=== PATIENT | male | born 1980 | race Caucasian/White ===

== ENCOUNTER 2017-08-12 22:20 | Emergency (ER) | payer BC ==
[2017-08-13 00:16] LABS: Amphetamine Not Detected (NotDetected); Methadone Not Detected (NotDetected); Methamphetamine Not Detected (NotDetected)
[2017-08-13 00:19] LABS: #Basophils 0.1 thou/uL (0.0-0.2); #Eosinphils 0.1 thou/uL (0.0-0.7); #Lymphocytes 2.7 thou/uL (1.20-3.40); #Monocytes 0.6 thou/uL (0.11-0.59); %Basophils 1.3 % (0.0-1.0); %Eosinophils 1.7 % (0.0-10.0); %Lymphocytes 35.4 % (21.0-51.0); %Monocytes 8.1 % (0.0-10.0); Mean Platelet Volume 7.9 fL (7.4-10.4); Red Blood Cell (RBC) Count 5.24 mill/uL (4.70-6.10); White Blood Cell (WBC) Count 7.5 thou/uL (4.8-10.8)
[2017-08-13 00:29] LABS: Bilirubin Negative (Negative); Blood, Urine Small (Negative); Glucose, Urine (Dipstick) Negative (Negative); Ketone, Urine Trace mg/dL (Negative); Nitrite Negative (Negative); Protein, Urine (Dipstick) Negative (Neg-Trace)
[2017-08-13 00:32] LABS: Bacteria/HPF None Seen HPF (None Seen); Hyaline Casts/LPF 0-3 HYALINE CAST LPF (0-3 Hyaline); RBC/HPF None Seen HPF (0-3); Squamous Epithelial None Seen HPF (0-3); WBC/HPF 0-3 HPF (0-3)
[2017-08-13 00:40] LABS: Acetaminophen Less than 6.0 mcg/mL (10.0-30.0); CK (CPK) 62 U/L (30-200); Salicylate Less than 8.0 mg/dL (15.0-30.0)
[2017-08-13 00:41] LABS: ALT (SGPT) 14 U/L (8-55); AST (SGOT) 19 U/L (5-34); Alkaline Phosphatase 54 U/L (40-150); Anion Gap 18 mmol/L (10-20); BUN (Urea Nitrogen) 15 mg/dL (8.9-20.6); Bilirubin, Total 0.4 mg/dL (0.2-1.2); Calc. Creatinine Clearance 0 mL/min (70-130); Calcium 8.9 mg/dL (7.8-10.44); Carbon Dioxide 23 mmol/L (22-29); Chloride 104 mmol/L (98-107); Estimated GFR-MDRD Greater than 90; Globulin 2.9 g/dL (2.4-3.5); Protein, Total 7.2 g/dL (6.0-8.3)
[2017-08-13] MEDS ORDERED: Lisinopril 10 MG TAB PO SCH (09:00)
[2017-08-13] MEDS ORDERED: CLOMIPRAMINE HCL 50 MG PO SCH ×2 (09:00→09:45)
[2017-08-13] MEDS ORDERED: Anastrozole 1 MG TAB PO SCH (09:00)
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
[2017-08-15] MEDS ORDERED: CLOMIPHENE CITRATE PO SCH (09:00)
[2017-08-15] MEDS ORDERED: Anastrozole 1 MG TAB PO SCH (09:00)
== END 2017-08-14 13:00 ==
LOC: ERS 22:20
DX: T14.91XA Suicide attempt, initial encounter (principal); F32.9 Major depressive disorder, single episode, unspecified; E66.9 Obesity, unspecified; Z79.899 Other long term (current) drug therapy
CPT/HCPCS: 36415; 80053; 80306; 80307; 81003; 81015; 82550; 84443; 85025

== ENCOUNTER 2017-09-12 16:27 | Outpatient (CLI) | payer BC ==
[2017-09-12 17:17] LABS: #Basophils 0.1 thou/uL (0.0-0.2); #Eosinphils 0.1 thou/uL (0.0-0.7); #Lymphocytes 2.6 thou/uL (1.20-3.40); #Monocytes 0.7 thou/uL (0.11-0.59); #Neutrophils 4.5 thou/uL (1.40-6.50); %Basophils 0.7 % (0.0-1.0); %Eosinophils 1.6 % (0.0-10.0); %Lymphocytes 32.5 % (21.0-51.0); %Monocytes 8.8 % (0.0-10.0); Hematocrit 46.7 % (42.0-52.0); Mean Platelet Volume 7.4 fL (7.4-10.4); Red Blood Cell (RBC) Count 5.02 mill/uL (4.70-6.10)
== END 2017-09-12 16:28 | disposition home or self-care (01) ==
LOC: LABBT 16:27
PROVIDERS: ATTEND Orthopaedic Surgery
DX: Z01.812 Encounter for preprocedural laboratory examination (principal); G56.20 Lesion of ulnar nerve, unspecified upper limb
CPT/HCPCS: 85025; 93005; 93010

== ENCOUNTER 2017-09-14 08:10 | Day surgery (SDC) | payer BC ==
[2017-09-12 16:42] VITALS: BMI 27.3
[2017-09-14] MEDS ORDERED: CEFAZOLIN/Water 2 GM/20 ML SYRINGE ONE (08:55)
[2017-09-14] MEDS ORDERED: Lidocaine 1% (PF) 30 ML VIAL ONE (10:17)
[2017-09-14] MEDS ORDERED: Fentanyl 100 MCG/2 ML VIAL ONE (10:18)
--- NOTE | 2017-09-16 00:19 | OP ---
DATE OF PROCEDURE: 09/14/2017 PREOPERATIVE DIAGNOSIS: Right cubital tunnel syndrome. POSTOPERATIVE DIAGNOSIS: Right cubital tunnel syndrome. PROCEDURE PERFORMED: 1. Right open ulnar nerve release with anterior transposition. 2. Placement of long arm splint, right upper extremity. SURGEON: Mj Lindo M.D. CHEMICAL EDUCATOR: None. BLOOD LOSS: Minimal. COMPLICATIONS: None. IMPLANTS: No implants. ANESTHETIC: Patient did have a general anesthetic. DISPOSITION: He did go to the recovery room in stable condition. INDICATIONS: A 36-year-old male who has had problems with numbness and tingling and weakness in his right arm. EMG/NCV showed him to have moderate to severe cubital tunnel syndrome. At this time, he opted for release. DESCRIPTION OF PROCEDURE: After all appropriate consent forms were explained and signed, he was take n back to the operating room and at this time was given a general anesthetic. Tourniquet was placed on his right arm and the arm was then prepped and draped in standard surgical fashion. Limb was exsa nguinated and tourniquet taken up to 250 mmHg. Using loupe magnification, a 10 blade was used to cut down through skin only. Bipolar cautery was then used to coagulate any brisk venous bleeding. Scis sor dissection was then carried down to the underlying ulnar nerve. This was released from proximal brachium all the way down to the first motor branch. Once this had been done and had been freed up c ircumferentially, a couple of interrupted Vicryl sutures were used to close the tissue over the cubit al tunnel so that the nerve would not fall back into the groove. At this time, the tourniquet was le t down and hemostasis was achieved. We then thoroughly irrigated and dried. We then used multiple V icryls as well as multiple Prolene sutures to close skin. Prior to placing our dressing, local was i nfiltrated around the wound for postoperative pain relief. At this time, a bulky sterile dressing wa s applied as well as a long arm splint to the right upper extremity. Patient was then awakened and h e was taken to recovery in stable condition. All counts were correct at the end of the case. He rec eived preoperative IV antibiotics.
== END 2017-09-14 13:11 | disposition home or self-care (01) ==
LOC: SDC 08:10
PROVIDERS: ATTEND Orthopaedic Surgery
PROC: 01N40ZZ Release Ulnar Nerve, Open Approach (ICD-10-PCS; principal; 2017-09-14)
DX: G56.21 Lesion of ulnar nerve, right upper limb (principal); M10.9 Gout, unspecified; I10 Essential (primary) hypertension; F17.220 Nicotine dependence, chewing tobacco, uncomplicated; Z79.899 Other long term (current) drug therapy; Z91.011 Allergy to milk products; Z98.84 Bariatric surgery status; Z98.818 Other dental procedure status; Z98.890 Other specified postprocedural states; Z85.828 Personal history of other malignant neoplasm of skin
CPT/HCPCS: J2001; J3010

== ENCOUNTER 2019-02-20 21:24 | Emergency (ER) | payer BC ==
[2019-02-20 21:57] LABS: #Eosinphils 0.1 thou/uL (0.0-0.7); #Lymphocytes 2.8 thou/uL (1.20-3.40); #Monocytes 0.5 thou/uL (0.11-0.59); #Neutrophils 4.1 thou/uL (1.40-6.50); %Basophils 0.6 % (0.0-1.0); %Eosinophils 1.7 % (0.0-10.0); %Lymphocytes 37.2 % (21.0-51.0); %Neutrophils 53.5 % (42.0-75.0); Hemoglobin 13.9 g/dL (14.0-18.0); Mean Corpuscular HGB CONC 33.8 g/dL (32.0-36.0); Mean Corpuscular Hemoglobin 31.6 pg (27.0-31.0); Mean Corpuscular Volume 93.3 fL (78.0-98.0); Mean Platelet Volume 7.7 fL (7.4-10.4); Platelet Count 296 thou/uL (130-400); RBC Distribution Width 10.8 % (11.5-14.5); Red Blood Cell (RBC) Count 4.39 mill/uL (4.70-6.10); White Blood Cell (WBC) Count 7.6 thou/uL (4.8-10.8)
[2019-02-20 22:19] LABS: ALT (SGPT) 19 U/L (8-55); AST (SGOT) 19 U/L (5-34); Acetaminophen Less than 6.0 mcg/mL (10.0-30.0); Alcohol 179 mg/dL (Less than 10); Alkaline Phosphatase 43 U/L (40-150); Anion Gap 22 mmol/L (10-20); BUN (Urea Nitrogen) 11 mg/dL (8.9-20.6); Bilirubin, Total 0.2 mg/dL (0.2-1.2); Calc. Creatinine Clearance 0 mL/min (70-130); Calcium 9.2 mg/dL (7.8-10.44); Carbon Dioxide 15 mmol/L (22-29); Chloride 104 mmol/L (98-107); Estimated GFR-MDRD 73; Globulin 2.8 g/dL (2.4-3.5); Glucose 86 mg/dL (70-105); Potassium 4.2 mmol/L (3.5-5.1); Protein, Total 6.8 g/dL (6.0-8.3); Salicylate Less than 8.0 mg/dL (15.0-30.0); Sodium 137 mmol/L (136-145)
[2019-02-20 22:56] LABS: Amphetamine Not Detected (NotDetected); Barbiturates Screen Not Detected (NotDetected); Benzodiazepine Screen Not Detected (NotDetected); Cocaine Metabolite Screen Not Detected (NotDetected); Medtox Control Line Valid? VALID (VALID); Medtox Reader # READER 1; Methadone Not Detected (NotDetected); Methamphetamine Not Detected (NotDetected); Opiate Screen Not Detected (NotDetected); Oxycodone Screen Not Detected (NotDetected); Phencyclidine (PCP) Not Detected (NotDetected); THC/Cannabinoid Screen Not Detected (NotDetected); Tricyclic Screen Not Detected (NotDetected)
== END 2019-02-21 12:21 ==
LOC: ERS 21:24
DX: T39.312A Poisoning by propionic acid derivatives, intentional self-harm, initial encounter (principal); I10 Essential (primary) hypertension; F32.9 Major depressive disorder, single episode, unspecified; Z79.899 Other long term (current) drug therapy
CPT/HCPCS: 36415; 80053; 80178; 80306; 80307; 85025; 93005; 96360